=== PATIENT | female | born 1955 | race Two or more races ===

== ENCOUNTER 2025-05-27 02:38 | Emergency (ER) | payer OTHER ==
[~2025-05-27] VITALS: Ht 157.5 cm; Wt 72.6 kg
[2025-05-27] MEDS ORDERED: KAPSPARGO SPRIN25 MG (03:00)
[2025-05-27] MEDS ORDERED: KETOROLAC TROMETHAMINE 60 MG VIAL IM STA (03:50)
[2025-05-27] MEDS ORDERED: KETOROLAC TROMETHAMINE 60 MG VIAL IM ONE (03:57)
[2025-05-27] MEDS ORDERED: MELOXICAM15 MG PO (04:44)
== END 2025-05-27 04:49 ==
LOC: ER 03:39
DX: S89.81XA Other specified injuries of right lower leg, initial encounter (principal); W01.0XXA Fall on same level from slipping, tripping and stumbling without subsequent striking against object, initial encounter; Y93.89 Activity, other specified; Y92.89 Other specified places as the place of occurrence of the external cause; S99.811A Other specified injuries of right ankle, initial encounter; I10 Essential (primary) hypertension; M85.871 Other specified disorders of bone density and structure, right ankle and foot; M77.31 Calcaneal spur, right foot

== ENCOUNTER 2025-05-31 08:11 | Emergency (ER) | payer OTHER ==
[~2025-05-31] VITALS: Ht 157.5 cm; Wt 72.6 kg
[~2025-05-31 08:11] MED LIST: KAPSPARGO SPRIN25 MG; MELOXICAM15 MG PO
[2025-05-31] MEDS ORDERED: KETOROLAC TROMETHAMINE 60 MG VIAL IM ONE ×2 (08:57→09:00)
[2025-05-31] MEDS ORDERED: DICLOFENAC SODI75 MG PO (08:58)
== END 2025-05-31 09:25 | disposition home or self-care (01) ==
LOC: ER 08:11
DX: M25.571 Pain in right ankle and joints of right foot (principal)